=== PATIENT | female | born 1950 | race Caucasian/White ===

== ENCOUNTER → 2016-04-07 | Outpatient (CLI) | payer OTHER, BC | LOC: MMPC 09:00 | DX: J44.1 Chronic obstructive pulmonary disease with (acute) exacerbation (principal); F17.210 Nicotine dependence, cigarettes, uncomplicated | CPT/HCPCS: 99213; G0463 ==

== ENCOUNTER → 2016-08-11 | Outpatient (CLI) | payer OTHER, BC ==
--- NOTE | 2016-08-11 14:28 | DI ---
PA /LATERAL CHEST X-RAY, 08/11/2016 1:56 PM : Clinical History: Cough Previous Exam: None at this facility. There is no acute soft tissue or bony abnormality. Heart size is normal. Lungs are clear. Mediastinal structures are normal. There are no pulmonary nodules. There is some subdiaphragmatic air identified. IMPRESSION: Normal chest x-ray. There is subdiaphragmatic air which appears to be within the hepatic flexure on the right and within the stomach. If there is concern for intraperitoneal air, consider an abdominal series.
== END ==
LOC: MOB RAD 13:58
PROVIDERS: ATTEND Physician Assistant
DX: R05 Cough (principal); R09.89 Other specified symptoms and signs involving the circulatory and respiratory systems; J44.9 Chronic obstructive pulmonary disease, unspecified; F17.200 Nicotine dependence, unspecified, uncomplicated
CPT/HCPCS: 71020; 94640; 99213; G0463

== ENCOUNTER → 2016-10-07 | Outpatient (CLI) | payer OTHER, BC | LOC: RT 12:17 | PROVIDERS: ATTEND Physician Assistant Medical | DX: J44.9 Chronic obstructive pulmonary disease, unspecified (principal); J45.40 Moderate persistent asthma, uncomplicated; F32.0 Major depressive disorder, single episode, mild; F17.210 Nicotine dependence, cigarettes, uncomplicated; Z12.11 Encounter for screening for malignant neoplasm of colon | CPT/HCPCS: 99214 ==

== ENCOUNTER → 2016-10-07 | Outpatient (CLI) | payer OTHER, BC | LOC: MMPC 09:00 | PROVIDERS: ATTEND Physician Assistant Medical | DX: J45.40 Moderate persistent asthma, uncomplicated (principal); J44.9 Chronic obstructive pulmonary disease, unspecified; F32.9 Major depressive disorder, single episode, unspecified; F17.210 Nicotine dependence, cigarettes, uncomplicated ==

== ENCOUNTER → 2016-10-16 | Outpatient (CLI) | payer OTHER, BC ==
--- NOTE | 2016-10-16 10:20 | PE ---
[facility] [place] Interpretive Statements [email or web address]
--- NOTE | 2016-10-16 10:33 | DI ---
CT CHEST W/O CONTRAST,10/16/2016 8:58 AM: Clinical History: Smoking Previous Exam: None at this facility. Findings: Multiple helically acquired CT images are obtained through the chest without contrast. There is no evidence of infiltrate nor effusion. Skeletal structures are unremarkable. The surrounding soft tissues are unremarkable. The thyroid is a lso unremarkable. Impression: No evidence of malignancy.
== END ==
LOC: CT 08:55
PROVIDERS: ATTEND Physician Assistant Medical
DX: J44.9 Chronic obstructive pulmonary disease, unspecified (principal); F17.210 Nicotine dependence, cigarettes, uncomplicated
CPT/HCPCS: 71250; 94060

== ENCOUNTER 2019-02-07 12:06 | Inpatient (IN) ==
[2019-02-07] MEDS ORDERED: ALBUTEROL SULFATE 2.5 MG/3 ML NEB PRN (12:18)
[2019-02-07] MEDS ORDERED: ONDANSETRON 4 MG/2 ML VIAL IVP PRN (12:18)
[2019-02-07] MEDS ORDERED: LIDOCAINE W/ SODIUM BICARB 0.5 ML SYR SUBD PRN (12:18)
[2019-02-07 13:13] LABS: VENOUS PH 7.52 (7.32-7.42)
[2019-02-07 13:18] LABS: BASOPHILS # (AUTO) 0.07 10*3/UL; BASOPHILS % (AUTO) 0.6 % (0-1); EOSINOPHILS % (AUTO) 1.8 % (0-8); Hematocrit [HCT] 39.2 % (37.0-47.0); LYMPHOCYTES # (AUTO) 2.56 10*3/uL; MEAN CORPUSCULAR HGB CONC 33.2 g/dL (33-37); MEAN CORPUSCULAR VOLUME 93.1 FL (81-99); MEAN PLATELET VOLUME 9.9 FL (7.4-12.2); MONOCYTES # (AUTO) 1.24 10*3/UL (0.3-0.8); MONOCYTES % (AUTO) 11.1 % (5-15); NEUTROPHILS # (AUTO) 6.98 10*3/UL; NEUTROPHILS % (AUTO) 62.7 % (50-80); RED BLOOD COUNT 4.21 10^6/uL (4.20-5.40)
[2019-02-07 13:37] LABS: PLATELET MORPHOLOGY COMMENT NORMAL MORPHOLOGY (NORM); RBC MORPHOLOGY COMMENT NORMAL MORPHOLOGY (NORM); WBC MORPHOLOGY COMMENT NORMAL MORPHOLOGY (NORM)
[2019-02-07] MEDS: IPRATROPIUM/ALBUTEROL SULFATE 3 ML NEB NEB SCH ×2 (15:09→19:07)
[2019-02-07] MEDS: PARoxetine Tab 20 MG TAB PO SCH (22:53)
[2019-02-08 04:28] LABS: BASOPHILS # (AUTO) 0.05 10*3/UL; BASOPHILS % (AUTO) 0.5 % (0-1); EOSINOPHILS # (AUTO) 0.27 10*3/UL; EOSINOPHILS % (AUTO) 2.7 % (0-8); Hematocrit [HCT] 35.7 % (37.0-47.0); Hemoglobin [HGB] 11.8 g/dL (12.0-16.0); LYMPHOCYTES # (AUTO) 2.56 10*3/uL; MEAN CORPUSCULAR HGB CONC 33.1 g/dL (33-37); MEAN CORPUSCULAR VOLUME 94.2 FL (81-99); MEAN PLATELET VOLUME 8.8 FL (7.4-12.2); MONOCYTES # (AUTO) 1.12 10*3/UL (0.3-0.8); MONOCYTES % (AUTO) 11.2 % (5-15); NEUTROPHILS # (AUTO) 5.89 10*3/UL; NEUTROPHILS % (AUTO) 58.9 % (50-80); RED BLOOD COUNT 3.79 10^6/uL (4.20-5.40)
[2019-02-08 04:33] LABS: PLATELET MORPHOLOGY COMMENT NORMAL MORPHOLOGY (NORM); RBC MORPHOLOGY COMMENT NORMAL MORPHOLOGY (NORM); WBC MORPHOLOGY COMMENT NORMAL MORPHOLOGY (NORM)
[2019-02-08 04:38] LABS: BLOOD UREA NITROGEN 6 mg/dL (7-22)
[2019-02-08] MEDS: IPRATROPIUM/ALBUTEROL SULFATE 3 ML NEB NEB SCH ×4 (06:43→18:54)
[2019-02-08] MEDS: predniSONE Tab 20 MG TAB PO SCH (08:03)
[2019-02-08] MEDS ORDERED: PARoxetine Tab 20 MG TAB PO SCH (09:00)
[2019-02-08] MEDS: NICOTINE 21 MG /DAY PATCH TRANSDERM SCH (15:30)
[2019-02-08] MEDS: PARoxetine Tab 20 MG TAB PO SCH (21:14)
[2019-02-09] MEDS: IPRATROPIUM/ALBUTEROL SULFATE 3 ML NEB NEB SCH ×3 (07:02→15:10)
[2019-02-09] MEDS: predniSONE Tab 20 MG TAB PO SCH (08:09)
[2019-02-09] MEDS: NICOTINE 21 MG /DAY PATCH TRANSDERM SCH (08:09)
[2019-02-09] MEDS ORDERED: Patch Removal PATCH TRANSDERM SCH (09:00)
[2019-02-09 10:59] VITALS: BP 125/76; TEMP 97.7
[2019-02-09 11:03] VITALS: RESP 18; O2SAT 94
== END 2019-02-09 15:31 | disposition home or self-care (01) | DRG 192 ==
LOC: MED/SURG 12:25
PROVIDERS: ADMIT Family Medicine; ATTEND Family Medicine